=== PATIENT | female | born 1980 ===

== ENCOUNTER 2023-10-21 15:25 | Emergency (ER) | payer OTHER, SELFPAY ==
[2023-10-21 15:27] VITALS: BP 114/74
[2023-10-21 16:18] VITALS: BP 119/77
[2023-10-21 16:52] LABS: % Basophils 0.7 % (0-2); % Eosinophils 3.1 % (0-6); % Immature Granulocytes 0.2 % (0-0.5); % Lymphocytes 30.1 % (20.5-51.1); % Monocytes 7.9 % (1.7-9.3); Absolute Basophils 0.1 10^3/uL (0-0.2); Absolute Eosinophils 0.3 10^3/uL (0-0.7); Absolute Lymphocytes 2.6 10^3/uL (1.2-3.4); Absolute Monocytes 0.7 10^3/uL (0.1-0.6); Absolute Neutrophils 4.9 10^3/uL (1.4-6.5); Hemoglobin 14.5 g/dL (12.0-16.0); Mean Corp Hgb Conc. 33.7 g/dL (33.0-37.0); Mean Corpuscular Hgb 28.8 pg (27.0-31.0); Mean Corpuscular Volume 85.3 fL (81.0-99.0); Mean Platelet Volume 10.1 fL (7.4-10.4); Nucleated Red Blood Cells % 0 %; Platelet Count 324 10^3/uL (130-400); Red Blood Cell Count 5.04 10^6/uL (4.20-5.40); Red Cell Dist. Width 12.5 % (11.5-14.5); White Blood Cell Count 8.5 10^3/uL (4.8-10.8)
[2023-10-21 17:10] LABS: ALT (SGPT) 21 U/L (0-35); AST (SGOT) 21 U/L (14-36); Albumin 4.4 g/dl (3.5-5.0); Alkaline Phosphatase 101 U/L (38-126); Blood Urea Nitrogen 18 mg/dl (7-17); Calcium 9.1 mg/dl (8.4-10.2); Carbon Dioxide 23 mmol/L (22-30); Chloride 106 mmol/L (98-107); Glucose 96 mg/dl (70-99); Potassium 4.2 mmol/L (3.5-5.1); Sodium 137 mmol/L (135-145); Total Bilirubin 0.8 mg/dl (0.2-1.3); Total Protein 7.4 g/dl (6.3-8.2); eGFR > 60.00
--- NOTE | 2023-10-21 17:13 | ED.GENMED ---
History of Present Illness
General
Chief Complaint: Heart Rate Problem
Source: patient
Exam Limitations: none
Time Seen by Provider: 10/21/23 16:45
Nursing documentation reviewed up to this point in time: agreed with
Travel History
Have you had any contact with someone who has COVID-19?: No
Do you have any symptoms of coronavirus? Fever > 100 degrees, chills, cough, shortness of breath, sore throat, loss of taste or smell, muscle aches, or headache?: No
History of Present Illness
History of Present Illness:
43-year-old female presents to the ER for evaluation. She reports for the past 10 days she has had a fast heart rate and palpitations and intermittent chest tightness. She denies any shortness of breath with this. She denies radiation of pain.
She currently is asymptomatic. She is no past medical history. She does not smoke. She just had her IUD taken out today and is on no other control. She denies any lower extremity swelling. She is asymptomatic now. She denies any
excessive caffeine use. She denies any new [id number] cough or cold medicines.
Review of Systems
Review of Systems
Allergies reviewed?: Yes
All Other Systems: ROS reviewed and negative except as documented in HPI and ROS
Constitutional: Reports no symptoms
EENT: Reports no symptoms
Respiratory: Denies trouble breathing
Cardiac: Reports chest pain and palpitations; Denies diaphoresis or syncope
Musculoskeletal: Reports no symptoms
Skin: Reports no symptoms
Neurological: Reports no symptoms
Psychiatric: Reports no symptoms
Phy Exam
General Physical Exam
General Presentation: no apparent distress
General age: appears stated age
General Skin: warm and dry
General Habitus: normal
General Mental: alert
General Hydration: appears well hydrated
Cardiovascular Exam
Cardiovascular Exam: regular rate/rhythm, no murmur and normal peripheral pulses
Pulmonary Exam
Pulmonary Exam: lungs clear and no respiratory distress
Neurological Exam
Neurological Exam: alert
Musculoskeletal Exam
Musculoskeletal Exam: full ROM
Skin Exam
Skin Exam: normal color and warm/dry
Psychiatric Exam
Psychiatric Exam: normal mood/affect
Course
Orders/Labs/Results
Orders:
Orders
10/21/23 15:31
EKG [Electrocardiogram (*1)] Urgent
Reason for Study: Chest Pain
EKG- Treatment ONCE
10/21/23 16:20
Test Result ONCE
10/21/23 16:38
Complete Blood Count/With Diff Urgent
Comprehensive Metabolic Panel Urgent
HCG, Serum Qualitative Screen Urgent
TSH Reflex To Free T4 Urgent
Troponin I Urgent
10/21/23 17:52
Chest [CR Chest - 2 Views ] Urgent
Comment:
Reason For Exam: cp
10/21/23 18:55
DDimer [D-Dimer] Urgent
Abnormal Lab Results
10/21/23
16:38
Absolute Monos (auto) 0.7 H 10^3/uL
(0.1-0.6)
BUN 18 H mg/dl
(7-17)
10/21/23 16:38
10/21/23 16:38
Vital Signs
Initial and Last Documented VS:
Initial Vital Signs
Temp Pulse Resp BP Pulse Ox
98.4 F 82 18 114/74 100
10/21/23 15:27 10/21/23 15:27 10/21/23 15:27 10/21/23 15:27 10/21/23 15:27
Last Documented Vital Signs
Temp Pulse Resp BP Pulse Ox
98.4 F 86 17 123/83 97
10/21/23 15:27 10/21/23 18:02 10/21/23 18:02 10/21/23 18:38 10/21/23 18:02
MDM/Problems Addressed
Differential Diagnosis Includes:
not limited to : palpitations less likely unstable angina, CAD less likely PE.
MDM/Problems Addressed:
Patient is a 43-year-old female presents to the ER for evaluation of elevated heart rate palpitations and intermittent chest pressure over the past 10 days. She denies any shortness of breath to me but she did mention in triage. She is not on
control does not smoke. She presents awake alert no acute distress asymptomatic presently. She has checked her heart rate and reports her heart rate was mostly in the 90s. Patient presents well-appearing normal sinus rhythm no heart murmur.
Patient is not hypoxic no complaints of shortness of breath or chest pain here in the ER not tachypneic nontachycardic with a normal white count normal hemoglobin normal chemistries normal D-dimer and normal cardiac troponin. Normal EKG with a
heart rate of 85 normal sinus rhythm.
With symptoms of chest pain intermittent palpitations will place on chest pain hotline will likely also need Holter monitor.
*Radiology
Radiology exam reviewed: radiology read reviewed
*Pulse Oximetry
Patient hypoxic: no
*EKG
Interpreted by ED Provider?: Yes
Heart Rate: 85
Rate: normal
Rhythm: sinus
Ischemia: no ischemia
*Critical Care Note
Total Time (30-74mins, 75-104mins- exclusive of procedures): Not Applicable
ED Attending Note
-
Portions of this chart may have been created with voice recognition software.� Occasional wrong word or��sound alike� substitutions may have occurred due to the inherent limitations of voice recognition software.
Discharge Plan
Departure
Patient Disposition: Home (Routine Discharge)
Date of Disposition: 10/21/23
Time of Disposition: 19:41
Patient with high blood pressure during this ER visit?: No
Condition: Fair
Covid-19: Not Applicable
Discharge Problem:
Chest pain, Palpitations
Instructions: Palpitations (DC), Chest Pain DCA Follow Up
Referrals:
Emmanuel Mckeon MD [Active] -
Ben Lucero MD [Family Provider] -
Activity Restrictions/Additional Instructions:
stay well-hydrated. Your workup in the emergency department was unremarkable. You were placed on a chest pain hotline which means you should receive a call from the cardiology office in the next several days to make an appointment ,if you do not
please give them a call. Follow-up soon as possible. Return if any worsening of symptoms .
Interventions
Interventions:
*General Assessment Last Done: 10/21/23 15:27
*ED COVID-19 Vaccine History Last Done: 10/21/23 15:27
*Nursing Disposition Last Done: 10/21/23 19:56
ED- Cardiac Assessment Last Done: 10/21/23 16:19
ED- Pulmonary Assessment Last Done: 10/21/23 16:19
Discharge Date and Time
Discharge Date/Time: 10/21/23 19:57
[2023-10-21 17:18] LABS: Troponin I < 0.012 ng/ml
[2023-10-21 17:22] LABS: HCG, Serum Qualitative Screen Negative
[2023-10-21 17:43] LABS: TSH Reflex To Free T4 1.84 uIU/ml (0.47-4.68)
[2023-10-21 18:38] VITALS: BP 123/83
[2023-10-21 19:19] LABS: D-Dimer 0.28 ug/mlFEU (0.00-0.50)
== END 2023-10-21 19:57 | disposition home or self-care (01) ==
LOC: EMR 15:25
PROVIDERS: Nurse Practitioner; EMERGENCY PHYSICIAN Emergency Medicine; FAMILY PHYSICIAN Family Medicine
DX: R07.89 Other chest pain (principal); R00.2 Palpitations
CPT/HCPCS: 99284; 71046; 80053; 84443; 84484; 84703; 85025; 85379; 93005

== ENCOUNTER → 2024-01-05 14:15 | Outpatient (REF) | payer OTHER, SELFPAY | LOC: RCS 14:15 | PROVIDERS: ATTENDING PHYSICIAN Internal Medicine Cardiovascular Disease; FAMILY PHYSICIAN Nurse Practitioner | DX: R07.89 Other chest pain (principal) | CPT/HCPCS: 93017; 93350 ==

== ENCOUNTER → 2024-01-06 14:52 | Outpatient (REF) | payer OTHER, SELFPAY | LOC: RCS 14:52 | PROVIDERS: ATTENDING PHYSICIAN Internal Medicine Cardiovascular Disease; FAMILY PHYSICIAN Nurse Practitioner | DX: R00.2 Palpitations (principal) | CPT/HCPCS: 93306 ==